=== PATIENT | male | born 1960 | race Caucasian/White ===

== ENCOUNTER → 2020-03-29 | Outpatient (CLI) | payer BC ==
--- NOTE | 2020-03-29 16:58 | XR ---
Cervical spine HISTORY: Pain 6 views of the cervical spine There is multilevel spondylosis, loss of disc height is greatest at C5-6. Lower cervical spine is not well seen. Prevertebral soft tissues are normal. Facet arthropathy changes present. Cervical vertebr al bodies show preserved height, alignment, bone mineralization. Oblique images show some foraminal e ncroachment on the right at C5-6. impression: Degenerative disc disease and facet arthropathy.
--- NOTE | 2020-03-29 16:59 | XR ---
Left shoulder HISTORY: Left shoulder pain 4 views of left shoulder Bone mineralization, joint spaces and alignment are maintained. No fracture or dislocation. Left lung apex as visualized is normal. Degenerative disc changes noted incidentally in the cervical spine. Sm all ossific density along the proximal left humeral diaphysis medially is well-corticated and not fel t likely to be acute, may be related to calcific tendinitis. IMPRESSION: Normal left shoulder. Additional findings above.
== END | disposition home or self-care (01) ==
LOC: RADXRMAIN 14:52
PROVIDERS: ATTEND Internal Medicine Geriatric Medicine
DX: M50.30 Other cervical disc degeneration, unspecified cervical region (principal); M47.812 Spondylosis without myelopathy or radiculopathy, cervical region; M85.812 Other specified disorders of bone density and structure, left shoulder
CPT/HCPCS: 72050

== ENCOUNTER 2024-11-14 10:16 | Day surgery (SDC) | payer BC ==
[2024-11-11 10:24] VITALS: BMI 38.0
[2024-11-14] MEDS: IV FLUID CONTINUATION 1,000 ML IV ONE (10:44)
[2024-11-14 10:59] LABS: Glucose,Whole Blood 91 mg/dL (70-110)
[2024-11-14] MEDS: LACTATED RINGERS 1,000 ML IV SCH (10:59)
[2024-11-14 11:10] VITALS: TEMP 97.8
[2024-11-14] MEDS ORDERED: PROPOFOL 10 MG/ML 20 ML VIAL IV ONE (11:14)
--- NOTE | 2024-11-14 11:19 | P.GSHP ---
History of Present Illness H&P Date: 11/14/24 Chief Complaint: Screening colonoscopy Is a 64-year-old male presents today for screening colonoscopy. Patient denies any significant GI complaints. Past Medical History Past Medical History: Diabetes Mellitus, Hyperlipidemia, Hypertension, Sleep Apnea/CPAP/BIPAP History of Any Multi-Drug Resistant Organisms: None Reported Past Surgical History: Cholecystectomy Past Anesthesia/Blood Transfusion Reactions: No Reported Reaction Past Psychological History: No Psychological Hx Reported Smoking Status: Never smoker Past Alcohol Use History: Rare Past Drug Use History: None Reported Medications and Allergies Home Medications Medication Instructions Recorded Confirmed Type Aspirin [Adult Low Dose Aspirin EC] 81 mg PO DAILY 11/11/24 11/14/24 History Losartan [Cozaar] 0 mg PO DAILY 11/11/24 11/14/24 History Rosuvastatin Calcium 0 mg PO HS 11/11/24 11/14/24 History Tirzepatide [Mounjaro] 15 mg SQ Q7D 11/11/24 11/14/24 History amLODIPine [Norvasc] 0 mg PO DAILY 11/11/24 11/14/24 History atenoloL [Tenormin] 0 mg PO DAILY 11/11/24 11/14/24 History glipiZIDE [Glucotrol] 2.5 mg PO AC-BID 11/11/24 11/14/24 History metFORMIN HCL 0 mg PO DIRECTED 11/11/24 11/14/24 History Allergies Allergy/AdvReac Type Severity Reaction Status Date / Time Penicillins Allergy Unknown Verified 11/14/24 10:43 Childhood Surgical - Exam Vital Signs Temp Pulse Resp BP Pulse Ox 97.8 F 88 18 125/83 98 11/14/24 10:46 11/14/24 10:46 11/14/24 10:46 11/14/24 10:46 11/14/24 10:46 - General well developed, well nourished - Eyes PERRL - ENT normal pinna - Neck no masses - Respiratory normal expansion - Cardiovascular Rhythm: regular - Abdomen Abdomen: soft, non tender Assessment and Plan Plan: Will perform screening colonoscopy.
--- NOTE | 2024-11-14 11:37 | P.OP ---
Date of Procedure: 11/14/24 Preoperative Diagnosis: Screening colonoscopy Postoperative Diagnosis: Normal colon Procedure(s) Performed: A colonoscopy Anesthesia: MAC Surgeon: Yves Campoverde Pathology: none sent Condition: stable Disposition: PACU Description of Procedure: PROCEDURE: The patient was placed on the endoscopy table in the lateral position. Digital rectal examination was performed which revealed no abnormalities. The prostate was symmetrical without nodules. Flexible colonoscope was then placed in the patient's anus and passed throughout the entire colon. The ileocecal valve was visualized. The cecum, ascending, transverse, descending and sigmoid colon were normal. The rectum was normal as well. There were no masses, polyps or diverticula noted in the entire colon. SUMMARY OF FINDINGS: Normal colonoscopy. Recommended follow-up in 10 years.
[2024-11-14 11:57] VITALS: BP 130/81; PULSE 81; RESP 16
== END 2024-11-14 12:18 | disposition home or self-care (01) ==
LOC: ORWHC2ENDO 10:16
PROVIDERS: ATTEND Surgery
DX: Z12.11 Encounter for screening for malignant neoplasm of colon (principal); E11.9 Type 2 diabetes mellitus without complications; E78.5 Hyperlipidemia, unspecified; I10 Essential (primary) hypertension; G47.30 Sleep apnea, unspecified; Z79.84 Long term (current) use of oral hypoglycemic drugs; Z79.82 Long term (current) use of aspirin; Z88.0 Allergy status to penicillin
CPT/HCPCS: 45378; J2704